=== PATIENT | male | born 1975 | race African-American/Black ===

== ENCOUNTER 2019-03-29 12:41 | Emergency (ER) | payer OTHER ==
[~2019-03-29] VITALS: Ht 172.7 cm; Wt 112.5 kg
[~2019-03-29 12:41] MED LIST: AZITHROMYCIN 2250 MG PO; CLEOCIN HCL300 MG PO; FLEXERIL PO; HYDROCHLOROTH12.5 M1 PO; HYDROCHLOROTHIA25 M2 PO; HYDROCODONE-AC120 ML PO; MECLIZINE 25 MG25 M1 PO; MEDROL DOSPAK21 TAB PO; MEDROLDOSEPACK PO; MOBIC15 MG PO; NAPROSYN500 M1 PO; NORCO 5-325 TA1 EACH PO; PERCOCET 10-321 EACH PO; PERCOCET 5-3251 EACH PO; PHENERGAN 25 MG25 M1 PO; PREDNISONE50 MG PO; VICODIN 5-5001 EACH PO
[2019-03-29 13:36] LABS: ABSOLUTE NEUTROPHILS 9.4 thou/uL (1.4-8.2); BASOPHILS 0.7 % (0.0-2.0); EOSINOPHILS 0.7 % (0.0-3.0); HEMATOCRIT 33.6 % (42.0-52.0); HEMOGLOBIN 11.5 gm/dL (14.0-18.0); LYMPHOCYTES 19.5 % (24.0-44.0); MCH 29.6 pg (26.0-34.0); MCHC 34.1 g/dL (28.0-37.0); MCV 86.8 fL (80.0-100.0); MONOCYTES 9.3 % (1.0-8.0); PLATELET COUNT 363 thou/uL (150-400); POLYS 69.8 % (36.0-66.0); RBC 3.88 mil/uL (4.50-6.00); RDW 13.1 % (10.5-14.5); WBC 13.4 thou/uL (4.0-11.0)
[2019-03-29 13:48] LABS: ANION GAP 15 mmol/L (7-16); BUN 15 mg/dL (7-18); CALCIUM 9.2 mg/dL (8.5-10.1); CHLORIDE 102 mmol/L (98-107); CO2 21 mmol/L (21-32); CREATININE 1.9 mg/dL (0.7-1.3); GLUCOSE 100 mg/dL (74-106); POTASSIUM 4.7 mmol/L (3.5-5.1); SODIUM 138 mmol/L (136-145)
[2019-03-29 13:58] LABS: MAGNESIUM 1.9 mg/dL (1.8-2.4); SGOT 31 U/L (15-37); SGPT 51 U/L (30-65); TOTAL BILIRUBIN 0.2 mg/dL (<0.1-1.0); TOTAL PROTEIN 6.3 g/dL (6.4-8.2); TROPONIN-I <0.06 ng/mL (<0.06)
[2019-03-29 14:46] LABS: URINE BILIRUBIN NEGATIVE (Negative); URINE BLOOD NEGATIVE (Negative); URINE CLARITY CLEAR; URINE COLOR YELLOW; URINE GLUCOSE-RANDOM* NEGATIVE (Negative); URINE KETONES NEGATIVE (Negative); URINE LEUKOCYTES-REFLEX NEGATIVE (Negative); URINE NITRITE-REFLEX NEGATIVE (Negative); URINE PROTEIN (DIPSTICK) NEGATIVE (Negative); URINE SPECIFIC GRAVITY 1.015 (1.005-1.035); URINE UROBILINOGEN 0.2 E.U./dl (0.2-1.0)
[2019-03-29 14:55] LABS: AMP/METHAMP Negative (Negative); BARBITURATES Negative (Negative); BENZODIAZEPINES Negative (Negative); COCAINE Negative (Negative); METHADONE Negative (Negative); OPIATES Negative (Negative); PCP Negative (Negative)
[2019-03-29] MEDS ORDERED: NORVASC2.5 MG PO (15:55)
[2019-03-29 17:39] VITALS: BP 107/65
--- NOTE | 2019-03-30 08:04 | EKG ---
[address] [place] [address] ELECTROCARDIOGRAM REPORT Name: DAVID ESTEVES Room #: DEP Macy#: [id number] ������������������ Admission: 03/29/19 ������������������ Attend Phys: Discharge: 03/29/19 ������������������ Date of : 79 Report #: [id number] ����������������������������������������������������������������� [id number] THIS REPORT FOR: //name// [facility] ED Test Date: 2019-03-29 Test Time: 13:32:48 Pat Name: DAVID ESTEVES Department: Room: Gender: [employer]: nadeem Gusman : 1975 Requested By: Terell Valdovinos Order Number: [id number] MD: Dave Lowe Measurements Intervals [place] Rate: 87 P: 11 AR: 164 QRS: 28 QRSD: 98 T: 13 QT: 370 QTc: 445 Interpretive Statements Sinus rhythm No previous ECG available for comparison Electronically Signed On 03-30-2019 8:04:00 CDT by Dave Lowe [email or web address] ��������������������������������������������� <ELECTRONICALLY SIGNED> ���������������������������������������� By: Dave Lowe MD ��������������������������������������������� 03/30/19 0804 1332 1332 Dave Lowe MD /[email or web address]
== END 2019-03-29 17:40 | disposition home or self-care (01) ==
LOC: ER 12:41
PROVIDERS: Emergency Medicine
DX: I10 Essential (primary) hypertension (principal); R79.89 Other specified abnormal findings of blood chemistry; R79.1 Abnormal coagulation profile; R55 Syncope and collapse; E86.9 Volume depletion, unspecified; F17.210 Nicotine dependence, cigarettes, uncomplicated